=== PATIENT | male | born 1960 | race Two or more races ===

== ENCOUNTER 2020-09-13 22:09 | Emergency (ER) | payer SELFPAY ==
[~2020-09-13] VITALS: Ht 157.5 cm; Wt 70.5 kg
[~2020-09-13 22:09] MED LIST: HTN MED PO
[2020-09-13] MEDS ORDERED: PredniSONE 20 MG TABLET PO ONE (23:15)
[2020-09-13] MEDS ORDERED: ACETAMINOPHEN 500 MG TABLET PO ONE (23:15)
[2020-09-13] MEDS ORDERED: GuaiFENesin/D-METHORPHAN [SUGAR-FREE] 200-20MG/10 ML SYRUP UDCUP PO ONE (23:15)
[2020-09-13] MEDS ORDERED: ALBUTEROL SULFATE HFA 90 MCG/PUFF 8 GM INHALER IH ONE (23:15)
[2020-09-13 23:35] LABS: COVID AG,FIA SOURCE NASOPHARYNGEAL
[2020-09-13 23:38] LABS: BASOPHILS % (AUTO) 0.7 % (0.0-2.0); HEMATOCRIT 51.3 % (41-53); HEMOGLOBIN 17.1 g/dL (13.5-17.5); LYMPHOCYTES # (AUTO) 5.2 K/uL (1.0-4.8); LYMPHOCYTES % (AUTO) 29.9 % (22.0-44.0); MEAN CORPUSCULAR HEMOGLOBIN 29.5 pg (26.0-34.0); MEAN CORPUSCULAR HGB CONC 33.4 G/dL (31.0-37.0); MEAN CORPUSCULAR VOLUME 88 fL (80-100); MONOCYTES # (AUTO) 1.6 K/uL (0.1-1.0); NEUTROPHILS # (AUTO) 10.2 K/uL (1.8-7.7); NEUTROPHILS % (AUTO) 58.4 % (40.0-70.0); PLATELET COUNT (AUTO) 319 K/uL (150-450); RED BLOOD CELL COUNT(AUTO) 5.81 MIL/uL (4.50-5.90); RED CELL DISTRIBUTION WIDTH 14.3 % (11.5-14.5)
[2020-09-14 00:10] LABS: ALANINE AMINOTRANSFERASE 22 U/L (12-78); ALBUMIN 4.4 g/dL (3.4-5.0); ALKALINE PHOSPHATASE 119 U/L (46-116); ANION GAP 15 mmol/L (8-16); ASPARTATE AMINOTRANSFERASE 13 U/L (15-37); BILIRUBIN,TOTAL 0.4 mg/dL (0.1-1.0); CALCIUM, TOTAL 9.5 mg/dL (8.8-10.5); CARBON DIOXIDE 25 mmol/L (22-29); CHLORIDE 96 mmol/L (98-107); CREATININE 0.95 mg/dL (0.60-1.30); GLOMERULAR FILTR. RATE CALC > 60 mL/min (>60); GLUCOSE,RANDOM 212 mg/dL (70-110); POTASSIUM 3.2 mmol/L (3.5-5.1); SODIUM SERUM 136 mmol/L (136-145); TOTAL PROTEIN, SERUM 8.4 g/dL (6.4-8.2); UREA NITROGEN, BLOOD 12 mg/dL (7-18)
[2020-09-14] MEDS ORDERED: POTASSIUM CHLORIDE 10% 40 MEQ/30 ML LIQUID UDCUP PO ONE (01:00)
[2020-09-14 01:30] VITALS: BP 136/92
== END 2020-09-14 01:47 | disposition home or self-care (01) ==
LOC: EMS 22:12
DX: J44.9 Chronic obstructive pulmonary disease, unspecified (principal); E87.6 Hypokalemia; R73.9 Hyperglycemia, unspecified; I10 Essential (primary) hypertension; F17.210 Nicotine dependence, cigarettes, uncomplicated; F12.90 Cannabis use, unspecified, uncomplicated; Z20.822 Contact with and (suspected) exposure to COVID-19
CPT/HCPCS: 36415; 71045; 80053; 84484; 85025; 87426; 93005; 94640; 99285; J7512; J3535

== ENCOUNTER 2021-08-30 09:20 | Emergency (ER) | payer SELFPAY ==
[~2021-08-30] VITALS: Ht 170.2 cm; Wt 79.5 kg
[~2021-08-30 09:20] MED LIST changes: +ALBU8HFA IH; +AMLO-257 PO; +AZIT-104 PO; -HTN MED PO; +PRED-554 PO
[2021-08-30 10:44] LABS: COVID AG,FIA SOURCE NASAL SWAB
[2021-08-30] MEDS ORDERED: ALBUTEROL SULFATE 2.5 MG/0.5 ML NEB SOLUTION NEB ONE (11:30)
[2021-08-30] MEDS ORDERED: IPRATROPIUM BROMIDE 0.5 MG/2.5 ML NEB SOLUTION NEB ONE (11:30)
[2021-08-30] MEDS ORDERED: PredniSONE 20 MG TABLET PO ONE (12:45)
[2021-08-30] MEDS ORDERED: ALBUTEROL SULFATE HFA 90 MCG/PUFF 8 GM INHALER IH ONE (12:45)
[2021-08-30 13:32] VITALS: BP 136/85
[2021-08-30] MEDS ORDERED: PRED-554 PO (14:04)
== END 2021-08-30 14:20 | disposition home or self-care (01) ==
LOC: EMS 09:20
DX: J44.1 Chronic obstructive pulmonary disease with (acute) exacerbation (principal); J45.909 Unspecified asthma, uncomplicated; I10 Essential (primary) hypertension; F17.210 Nicotine dependence, cigarettes, uncomplicated; F12.90 Cannabis use, unspecified, uncomplicated; Z20.822 Contact with and (suspected) exposure to COVID-19
CPT/HCPCS: 71045; 87426; 94640; 99284; J7512; J3535; J7613

== ENCOUNTER 2021-09-27 16:27 | Emergency (ER) | payer SELFPAY ==
[~2021-09-27] VITALS: Ht 167.6 cm; Wt 68.0 kg
[2021-09-27 16:35] VITALS: BP 146/92
[2021-09-27] MEDS ORDERED: ALBUTEROL SULFATE 2.5 MG/0.5 ML NEB SOLUTION NEB ONE (17:30)
[2021-09-27 17:46] LABS: COVID AG,FIA SOURCE NASAL SWAB
[2021-09-27] MEDS ORDERED: PRED-554 PO (18:39)
[2021-09-27] MEDS ORDERED: ALBU8HFA IH (18:40)
== END 2021-09-27 19:06 | disposition home or self-care (01) ==
LOC: EMS 16:27
DX: J20.9 Acute bronchitis, unspecified (principal); J45.909 Unspecified asthma, uncomplicated; I10 Essential (primary) hypertension; F17.210 Nicotine dependence, cigarettes, uncomplicated; F12.90 Cannabis use, unspecified, uncomplicated; Z98.890 Other specified postprocedural states; Z20.822 Contact with and (suspected) exposure to COVID-19
CPT/HCPCS: 71046; 94640; 99283; 99284; 99406; J7613

== ENCOUNTER 2023-05-16 21:17 | Emergency (ER) | payer MEDICARE, MEDICAID ==
[~2023-05-16] VITALS: Ht 162.6 cm; Wt 79.5 kg
[~2023-05-16 21:17] MED LIST changes: +ALBU18HF12 IH; -ALBU8HFA IH
[2023-05-16 21:32] VITALS: BP 147/80; PULSE 108; RESP 22; TEMP 98.4
[2023-05-16 22:02] LABS: COVID AG,FIA SOURCE NASAL SWAB
[2023-05-16 22:25] LABS: SARS-COV2 (COVID) ANTIGEN,FIA Negative (Negative)
[2023-05-16 22:26] LABS: INFLUENZA TYPE A NEGATIVE FOR TYPE A (NEGATIVE); INFLUENZA TYPE B NEGATIVE FOR TYPE B (NEGATIVE)
== END 2023-05-16 22:33 | disposition left against medical advice (07) ==
LOC: EMS 21:17
DX: R05.9 Cough, unspecified (principal); Z53.21 Procedure and treatment not carried out due to patient leaving prior to being seen by health care provider; Z20.822 Contact with and (suspected) exposure to COVID-19
CPT/HCPCS: 87804; 99281; Z7502

== ENCOUNTER 2025-01-21 01:12 | Emergency (ER) | payer MEDICAID, MEDICARE ==
[~2025-01-21] VITALS: Ht 172.7 cm; Wt 81.8 kg
[~2025-01-21 01:12] MED LIST changes: -AZIT-104 PO; +AZIT-167 PO
[2025-01-21 01:46] LABS: COVID AG,FIA SOURCE NASAL SWAB
[2025-01-21 01:51] LABS: PLATELET COUNT (AUTO) 300 K/uL (150-450); RED BLOOD CELL COUNT(AUTO) 5.15 MIL/uL (4.50-5.90); RED CELL DISTRIBUTION WIDTH 13.5 % (11.5-14.5); WHITE BLOOD COUNT (AUTO) 10.4 K/uL (4.5-11.0)
[2025-01-21 02:18] LABS: SARS-COV2 (COVID) ANTIGEN,FIA Negative (Negative)
[2025-01-21 02:20] LABS: CALCIUM, TOTAL 8.4 mg/dL (8.8-10.5); CREATININE 0.91 mg/dL (0.60-1.30); GLOMERULAR FILTR. RATE CALC > 60 mL/min (>60); GLUCOSE,RANDOM 142 mg/dL (70-110); SODIUM SERUM 142 mmol/L (136-145); UREA NITROGEN, BLOOD 13 mg/dL (7-18)
[2025-01-21] MEDS: CefTRIAXone 1 GM/DEXTROSE 50 ML IV ONE (02:48)
[2025-01-21] MEDS: POTASSIUM CHLORIDE 20 MEQ ER TABLET PO ONE (02:48)
[2025-01-21] MEDS: POTASSIUM CHL 40 MEQ/D5-0.45NS 1,000 ML IV ONE (02:59)
[2025-01-21] MEDS ORDERED: SULF1TAB42 PO (04:10)
[2025-01-21 04:27] LABS: APPEARANCE,URINE CLEAR (CLEAR); GLUCOSE, URINE (UA) 150-200 mg/dL (NEGATIVE); LEUKOCYTE ESTERASE ,URINE NEGATIVE (NEGATIVE); NITRATE,URINE NEGATIVE (NEGATIVE); OCCULT BLOOD,URINE MODERATE (NEGATIVE); PH,URINE DRUG SCREEN 6.0 (5.0-8.0); SPECIFIC GRAVITIY, URINE 1.031 (1.003-1.030)
[2025-01-21 05:03] LABS: SULFOSALICYLIC ACID,URINE 2+ (Negative)
[2025-01-21 05:05] LABS: SQUAMOUS EPITHELIAL CELL,UR Few /LPF (None Seen); URINALYSIS COMMENT Few Sperm seen.
[2025-01-21 05:48] LABS: ALCOHOL, URINE DRUG SCREEN NEGATIVE (NEGATIVE); AMPHET/METH SCREEN,URINE POSITIVE (NEGATIVE); BARBITURATE SCREEN, URINE NEGATIVE (NEGATIVE); CANNABINOID SCREEN,URINE NEGATIVE (NEGATIVE); COCAINE SCREEN,URINE NEGATIVE (NEGATIVE); METHADONE SCREEN, URINE NEGATIVE (NEGATIVE)
[2025-01-21 06:59] VITALS: BP 163/95; PULSE 87; RESP 19; O2SAT 99
== END 2025-01-21 07:11 | disposition home or self-care (01) ==
LOC: EMS 02:21
DX: L03.116 Cellulitis of left lower limb (principal); E87.6 Hypokalemia; F12.90 Cannabis use, unspecified, uncomplicated; I10 Essential (primary) hypertension; J45.909 Unspecified asthma, uncomplicated; F17.210 Nicotine dependence, cigarettes, uncomplicated; Z79.52 Long term (current) use of systemic steroids; Z79.899 Other long term (current) drug therapy; Z98.890 Other specified postprocedural states; Z20.822 Contact with and (suspected) exposure to COVID-19
CPT/HCPCS: 99285; 96365; 96366; 87426; 80048; 81001; 85025; 36415; 93005; 96368; 80307; G0480; J0696; J3480; 81002

== ENCOUNTER 2025-01-25 00:30 | Emergency (ER) | payer MEDICARE, MEDICAID ==
[~2025-01-25] VITALS: Ht 162.6 cm; Wt 75.0 kg
[~2025-01-25 00:30] MED LIST changes: +SULF1TAB42 PO
[2025-01-25 00:39] VITALS: TEMP 98
[2025-01-25 01:49] LABS: ALCOHOL, BLOOD (SERUM) 50 mg/dL (0-10)
[2025-01-25 02:04] LABS: PLATELET COUNT (AUTO) 269 K/uL (150-450); RED BLOOD CELL COUNT(AUTO) 4.98 MIL/uL (4.50-5.90); RED CELL DISTRIBUTION WIDTH 13.4 % (11.5-14.5); WHITE BLOOD COUNT (AUTO) 9.4 K/uL (4.5-11.0)
[2025-01-25 02:06] LABS: CALCIUM, TOTAL 8.5 mg/dL (8.8-10.5); CREATININE 0.70 mg/dL (0.60-1.30); GLOMERULAR FILTR. RATE CALC > 60 mL/min (>60); GLUCOSE,RANDOM 94 mg/dL (70-110); SODIUM SERUM 141 mmol/L (136-145); UREA NITROGEN, BLOOD 13 mg/dL (7-18)
[2025-01-25 02:10] LABS: ASPARTATE AMINOTRANSFERASE 22 U/L (15-37); TOTAL PROTEIN, SERUM 7.1 g/dL (6.4-8.2)
[2025-01-25] MEDS: POTASSIUM CHLORIDE 20 MEQ ER TABLET PO ONE (03:11)
[2025-01-25] MEDS: MAGNESIUM SULFATE 2 GM, MVI, ADULT NO.1 WITH VIT K 10 ML, THIAMINE 100 MG, FOLIC ACID 1... IV ONE (03:24)
[2025-01-25 03:58] LABS: PH,URINE DRUG SCREEN 6.5 (5.0-8.0)
[2025-01-25 04:03] LABS: ALCOHOL, URINE DRUG SCREEN NEGATIVE (NEGATIVE); AMPHET/METH SCREEN,URINE POSITIVE (NEGATIVE); BARBITURATE SCREEN, URINE NEGATIVE (NEGATIVE); CANNABINOID SCREEN,URINE NEGATIVE (NEGATIVE); COCAINE SCREEN,URINE NEGATIVE (NEGATIVE); METHADONE SCREEN, URINE NEGATIVE (NEGATIVE)
[2025-01-25] MEDS ORDERED: CEPH-558 PO (04:56)
[2025-01-25 05:18] VITALS: BP 118/70; PULSE 86; RESP 18; O2SAT 96
== END 2025-01-25 05:39 | disposition home or self-care (01) ==
LOC: EMS 00:30
DX: F10.229 Alcohol dependence with intoxication, unspecified (principal); T30.0 Burn of unspecified body region, unspecified degree; F12.90 Cannabis use, unspecified, uncomplicated; I10 Essential (primary) hypertension; J45.909 Unspecified asthma, uncomplicated; Y90.2 Blood alcohol level of 40-59 mg/100 ml; Z79.899 Other long term (current) drug therapy; X58.XXXA Exposure to other specified factors, initial encounter; Y93.89 Activity, other specified; Y92.89 Other specified places as the place of occurrence of the external cause; Y99.8 Other external cause status
CPT/HCPCS: 99283; 80053; 85025; 36415; 80307; G0480; J3411; J3475; J3490; J7030